=== PATIENT | male | born 1980 | race Caucasian/White ===

== ENCOUNTER 2021-07-25 21:58 | Emergency (ER) | payer OTHER ==
[~2021-07-25] VITALS: Ht 182.9 cm; Wt 145.0 kg
[2021-07-25 22:03] VITALS: BP 126/96
[2021-07-25] MEDS ORDERED: NEOM28.43 TP (22:28)
[2021-07-25] MEDS ORDERED: ACET-2708 PO (22:28)
[2021-07-25] MEDS ORDERED: BACITRACIN ZINC OINT UDPKT TOP SCH (22:30)
== END 2021-07-25 22:46 ==
LOC: ER 21:58
DX: S30.811A Abrasion of abdominal wall, initial encounter (principal); Y35.093A Legal intervention involving other firearm discharge, suspect injured, initial encounter; Y93.89 Activity, other specified; Y92.89 Other specified places as the place of occurrence of the external cause
CPT/HCPCS: 99283